=== PATIENT | male | born 1960 | race Caucasian/White ===

== ENCOUNTER 2024-09-05 07:43 | Day surgery (SDC) | payer OTHER ==
[2024-09-05] MEDS: Lactated Ringers 1,000 ML IV SCH (08:05)
[2024-09-05] MEDS ORDERED: propofoL 500 MG/50 ML 50 ML ONE (08:28)
== END 2024-09-05 10:28 | disposition home or self-care (01) ==
LOC: JD.SDS 07:43
PROVIDERS: ATTEND Surgery
DX: Z12.11 Encounter for screening for malignant neoplasm of colon (principal); D12.3 Benign neoplasm of transverse colon; D12.4 Benign neoplasm of descending colon; K64.0 First degree hemorrhoids; Z87.891 Personal history of nicotine dependence
CPT/HCPCS: 45380; J2704; J7120; 00811